=== PATIENT | female | born 2000 | race Caucasian/White ===

== ENCOUNTER 2022-07-14 19:36 | Emergency (ER) | payer OTHER ==
[~2022-07-14] VITALS: Ht 149.9 cm; Wt 61.2 kg
[2022-07-14 20:08] VITALS: BP 116/73
--- NOTE | 2022-07-14 20:12 | NUR ---
TO LOBBY A/W BED AMBULATORY
--- NOTE | 2022-07-14 23:28 | NUR ---
PATIENT LEFT WITHOUT BEING SEEN BY DR. MACIEL. NO FURTHER CARE PROVIDED FOR PATIENT.
== END 2022-07-14 23:20 | disposition left against medical advice (07) ==
LOC: MED 19:36
DX: R42 Dizziness and giddiness (principal); Z53.21 Procedure and treatment not carried out due to patient leaving prior to being seen by health care provider